=== PATIENT | female | born 1950 | race Caucasian/White ===

== ENCOUNTER 2017-11-15 06:40 | Day surgery (SDC) | payer MEDICARE, BC ==
[2017-11-13 13:06] VITALS: BMI 37.0
[~2017-11-15 06:40] MED LIST: LACTATED RINGERS 1,000 ML IV SCH; LIDOCAINE 1% 20 ML VIAL (10MG/ML) FOR IV START INTRADERMA PRN
[2017-11-15 07:08] LABS: Glucose,Whole Blood 100 mg/dL (75-99)
[2017-11-15 07:11] VITALS: TEMP 98.4
[2017-11-15] MEDS ORDERED: PROPOFOL 10 MG/ML 20 ML VIAL IV ONE (07:34)
--- NOTE | 2017-11-15 08:04 | P.PCN ---
Date of Procedure: 11/15/17 Procedure(s) Performed: BRIEF HISTORY: Patient is a 67-year-old, pleasant, female, recently diagnosed with liver cirrhosis. She also has long-standing history of GERD. She is scheduled for an upper endoscopy to evaluate for esophageal varices and rule out compensated reflux disease. PROCEDURE PERFORMED: Esophagogastroduodenoscopy and biopsy. PREOPERATIVE DIAGNOSIS: Liver cirrhosis/screening for esophageal varices/. IV sedation per anesthesia. PROCEDURE: After informed consent was obtained, the patient was brought into the endoscopy unit. IV sedation was administered by Anesthesia under continuous monitoring. Initially the Olympus GIF-140 video endoscope was inserted into the mouth. Esophagus intubated without any difficulty. It was gradually advanced into the stomach and duodenum and carefully examined. The bulb and the second part of the duodenum appeared normal. The scope at this time was withdrawn to the stomach, adequately insufflated with air, and upon careful examination, mucosa of the antrum, appeared normal. In the body of the stomach there was a 5 -6 minute polyp that was biopsied. The rest of the body, cardia and the fundus appeared normal. There was small amount of retained food in the stomach suggestive of gastroparesis. The scope was then withdrawn into the esophagus. The GE junction was located at 39 cm from the incisors. The esophagus appeared normal. There were no erosions or ulcerations seen. Small esophageal varices seen in the distal esophagus and the patient tolerated the procedure well. IMPRESSION: 1. 5 mm gastric polyp status post biopsy. 2. Retained food in the stomach suggestive of gastroparesis. 3. Small distal esophageal varices RECOMMENDATIONS: The findings of this examination were discussed with the patient as well as her family. She was advised to follow with the biopsy results. She can have a repeat upper endoscopy in 2-3 years.
[2017-11-15 08:49] VITALS: BP 107/60; PULSE 61; RESP 18
== END 2017-11-15 09:14 | disposition home or self-care (01) ==
LOC: ORWHC2ENDO 06:40
PROVIDERS: ATTEND Internal Medicine Gastroenterology
DX: K31.7 Polyp of stomach and duodenum (principal); K25.9 Gastric ulcer, unspecified as acute or chronic, without hemorrhage or perforation; K29.50 Unspecified chronic gastritis without bleeding; K74.69 Other cirrhosis of liver; I85.10 Secondary esophageal varices without bleeding; K21.9 Gastro-esophageal reflux disease without esophagitis; I10 Essential (primary) hypertension; E11.9 Type 2 diabetes mellitus without complications; Z79.84 Long term (current) use of oral hypoglycemic drugs; E78.5 Hyperlipidemia, unspecified; E07.9 Disorder of thyroid, unspecified; M10.9 Gout, unspecified; Z79.899 Other long term (current) drug therapy; Z88.6 Allergy status to analgesic agent; Z88.2 Allergy status to sulfonamides
CPT/HCPCS: 88305; 88342; 43239; J2704

== ENCOUNTER 2018-12-19 08:25 | Day surgery (SDC) | payer MEDICARE, BC ==
[2018-12-16 13:01] VITALS: BMI 39.4
[2018-12-19] MEDS ORDERED: LACTATED RINGERS 1,000 ML IV ONE (09:20)
[2018-12-19] MEDS ORDERED: LIDOCAINE 1% 20 ML VIAL (10MG/ML) FOR IV START INTRADERMA ONE (09:20)
[2018-12-19 09:27] VITALS: RESP 16; TEMP 97.8
[2018-12-19 09:32] LABS: Glucose,Whole Blood 92 mg/dL (75-99)
[2018-12-19] MEDS ORDERED: PROPOFOL 10 MG/ML 20 ML VIAL IV ONE (10:10)
--- NOTE | 2018-12-19 10:28 | P.PCN ---
Date of Procedure: 12/19/18 Procedure(s) Performed: BRIEF HISTORY: Patient is a 68-year-old pleasant white female scheduled for an elective colonoscopy as a part of evaluation of prior history of colon polyps. Last colonoscopy was 3 years ago. PROCEDURE PERFORMED: Colonoscopy with snare polypectomy. PREOPERATIVE DIAGNOSIS: History of colon polyps. IV sedation per Anesthesia. PROCEDURE: After informed consent was obtained, the patient, was brought into the endoscopy unit. IV sedation was administered by Anesthesia under continuous monitoring. Digital rectal examination was normal. Initially the Olympus CF-160 flexible video colonoscope was then inserted in the rectum, gradually advanced into the cecum without any difficulty. Careful examination was performed as the scope was gradually being withdrawn. Ileocecal valve and the appendiceal orifice were visualized and appeared normal. Prep was excellent. Mucosa of the cecum, ascending colon, transverse colon, descending colon appeared normal. In the distal sigmoid colon there was a 5 mm polyp that was removed by snare polypectomy. The rest of the, sigmoid colon, and rectum appeared normal. Retroflexion was performed in the rectum and small internal hemorrhoids were seen. The patient tolerated the procedure well. IMPRESSION: 5 mm distal sigmoid colon polyp status post polypectomy Rest of the colon appeared normal. Small internal hemorrhoids. RECOMMENDATIONS: Findings of this examination were discussed with the patient as well as her family. She was advised to follow with the biopsy results and have a repeat surveillance colonoscopy in 5 years
[2018-12-19 10:37] VITALS: BP 115/56; PULSE 59
== END 2018-12-19 11:01 | disposition home or self-care (01) ==
LOC: ORWHC2ENDO 08:25
PROVIDERS: ATTEND Internal Medicine Gastroenterology
DX: Z12.11 Encounter for screening for malignant neoplasm of colon (principal); Z86.010 Personal history of colon polyps; K64.8 Other hemorrhoids; D12.5 Benign neoplasm of sigmoid colon; I10 Essential (primary) hypertension; E78.5 Hyperlipidemia, unspecified; Z86.718 Personal history of other venous thrombosis and embolism; Z86.711 Personal history of pulmonary embolism; E11.9 Type 2 diabetes mellitus without complications; E07.9 Disorder of thyroid, unspecified; B19.20 Unspecified viral hepatitis C without hepatic coma; K21.9 Gastro-esophageal reflux disease without esophagitis; K74.60 Unspecified cirrhosis of liver; Z79.84 Long term (current) use of oral hypoglycemic drugs; Z79.890 Hormone replacement therapy; Z79.899 Other long term (current) drug therapy; Z88.6 Allergy status to analgesic agent; Z88.2 Allergy status to sulfonamides
CPT/HCPCS: 45385; 88305; J2704

== ENCOUNTER → 2020-03-09 | Day surgery (SDC) | payer BC, MEDICARE ==
[2020-03-07 13:40] VITALS: BMI 39.4
[~2020-03-09] MED LIST changes: -LIDOCAINE 1% 20 ML VIAL (10MG/ML) FOR IV START INTRADERMA PRN; +LIDOCAINE 1% INJ 10MG/ML (20 ML MDV) ONE; +PROPOFOL 10 MG/ML 20 ML VIAL IV ONE
[2020-03-09 07:40] VITALS: TEMP 97.3
[2020-03-09 07:46] LABS: Glucose,Whole Blood 102 mg/dL (75-99)
--- NOTE | 2020-03-09 08:48 | P.PCN ---
Date of Procedure: 03/09/20 Procedure(s) Performed: BRIEF HISTORY: Patient is a 69-year-old, pleasant, white female, scheduled for an upper endoscopy as a part of screening for esophageal varices. She was diagnosed with cirrhosis of the liver related to fatty liver disease in 2017.. PROCEDURE PERFORMED: Esophagogastroduodenoscopy with biopsy. PREOPERATIVE DIAGNOSIS: Cirrhosis of the liver/screening for esophageal varices. IV sedation per anesthesia. PROCEDURE: After informed consent was obtained, the patient was brought into the endoscopy unit. IV sedation was administered by Anesthesia under continuous monitoring. Initially the Olympus GIF-140 video endoscope was inserted into the mouth. Esophagus intubated without any difficulty. It was gradually advanced into the stomach and duodenum and carefully examined. The bulb and the second part of the duodenum appeared normal. The scope at this time was withdrawn to the stomach, adequately insufflated with air, and upon careful examination, mucosa of the antrum had patchy areas of consultation will decide if the biopsies were done from this area. The gastric polyps noted in the body the stomach which were biopsied. Rest of the body, cardia and the fundus appeared normal. No evidence of gastric varices. The scope was then withdrawn into the esophagus. The GE junction was located at 39 cm from the incisors. The esophagus appeared normal. There were no erosions or ulcerations seen, no evidence of esophageal varices and the patient tolerated the procedure well. IMPRESSION: 1. No evidence of gastric or esophageal varices. 2. Mild portal hypertensive gastropathy. 3. Small gastric polyps RECOMMENDATIONS: The findings of this examination were discussed with the patient as well as her family.. She was advised to follow with the biopsy results. She can have a repeat EGD in 2 -3 years for screening for esophageal varices.
[2020-03-09 08:57] VITALS: RESP 16
[2020-03-09 09:14] VITALS: BP 133/75; PULSE 57
== END ==
LOC: ORWHC2ENDO 07:22
PROVIDERS: ATTEND Internal Medicine Gastroenterology
DX: Z13.89 Encounter for screening for other disorder (principal); K29.50 Unspecified chronic gastritis without bleeding; K31.7 Polyp of stomach and duodenum; K76.6 Portal hypertension; K31.89 Other diseases of stomach and duodenum; K74.60 Unspecified cirrhosis of liver; K76.0 Fatty (change of) liver, not elsewhere classified; I10 Essential (primary) hypertension; E78.5 Hyperlipidemia, unspecified; E11.9 Type 2 diabetes mellitus without complications; E07.9 Disorder of thyroid, unspecified; M10.9 Gout, unspecified; M19.90 Unspecified osteoarthritis, unspecified site; K21.9 Gastro-esophageal reflux disease without esophagitis; F41.9 Anxiety disorder, unspecified; Z88.6 Allergy status to analgesic agent; Z88.2 Allergy status to sulfonamides; Z87.891 Personal history of nicotine dependence; Z79.84 Long term (current) use of oral hypoglycemic drugs; Z79.899 Other long term (current) drug therapy; Z98.890 Other specified postprocedural states; E66.01 Morbid (severe) obesity due to excess calories; Z68.39 Body mass index [BMI] 39.0-39.9, adult; Z90.89 Acquired absence of other organs
CPT/HCPCS: 88305; 43239; J2001; J2704

== ENCOUNTER 2023-12-25 09:42 | Day surgery (SDC) | payer MEDICARE ==
[2023-12-19 11:26] VITALS: BMI 37.2
[~2023-12-25 09:42] MED LIST changes: +LIDOCAINE 1% (10MG/ML) FOR IV START INTRADERMA PRN; -LIDOCAINE 1% INJ 10MG/ML (20 ML MDV) ONE; -PROPOFOL 10 MG/ML 20 ML VIAL IV ONE
[2023-12-25] MEDS: LACTATED RINGERS 1,000 ML IV ONE (10:15)
[2023-12-25 10:37] LABS: Glucose,Whole Blood 91 mg/dL (70-110)
[2023-12-25] MEDS ORDERED: PROPOFOL 10 MG/ML 20 ML VIAL IV ONE (10:48)
[2023-12-25 10:52] VITALS: TEMP 97.4
--- NOTE | 2023-12-25 11:02 | P.PCN ---
Date of Procedure: 12/25/23 Procedure(s) Performed: BRIEF HISTORY: Patient is a 73-year-old pleasant white female scheduled for an elective colonoscopy as a part of evaluation by history of colon polyps. PROCEDURE PERFORMED: Colonoscopy. PREOPERATIVE DIAGNOSIS: History of colon polyps. IV sedation per Anesthesia. PROCEDURE: After informed consent was obtained, the patient, was brought into the endoscopy unit. IV sedation was administered by Anesthesia under continuous monitoring. Digital rectal examination was normal. Initially the Olympus CF-160 flexible video colonoscope was then inserted in the rectum, gradually advanced into the cecum without any difficulty. Careful examination was performed as the scope was gradually being withdrawn. Ileocecal valve and the appendiceal orifice were visualized and appeared normal. Prep was excellent. Mucosa of the cecum, ascending colon, transverse colon, descending colon, sigmoid colon, and rectum appeared normal. Retroflexion was performed in the rectum and internal hemorrhoids were seen. The patient tolerated the procedure well. IMPRESSION: Normal-appearing colon from rectum to cecum with no evidence of colorectal neoplasia. Grade 2 internal hemorrhoids RECOMMENDATIONS: Findings of this examination were discussed with the patient as well as her family.. She was advised to have repeat screening colonoscopy in 5 years because of the prior history of colon polyps.
[2023-12-25 11:52] VITALS: BP 112/72; PULSE 68; RESP 18
== END 2023-12-25 11:48 | disposition home or self-care (01) ==
LOC: ORWHC2ENDO 09:42
PROVIDERS: ATTEND Internal Medicine Gastroenterology
DX: Z86.010 Personal history of colon polyps (principal); Z12.11 Encounter for screening for malignant neoplasm of colon; K64.1 Second degree hemorrhoids; I48.91 Unspecified atrial fibrillation; E78.5 Hyperlipidemia, unspecified; E11.9 Type 2 diabetes mellitus without complications; Z86.73 Personal history of transient ischemic attack (TIA), and cerebral infarction without residual deficits; I26.99 Other pulmonary embolism without acute cor pulmonale; E07.9 Disorder of thyroid, unspecified; K21.9 Gastro-esophageal reflux disease without esophagitis; Z79.01 Long term (current) use of anticoagulants; Z79.890 Hormone replacement therapy; Z79.899 Other long term (current) drug therapy; Z88.6 Allergy status to analgesic agent
CPT/HCPCS: 45378; J2704

== ENCOUNTER 2024-05-01 12:02 | Day surgery (SDC) | payer MEDICARE ==
[2024-04-28 10:47] VITALS: BMI 33.6
[2024-05-01] MEDS: IV FLUID CONTINUATION 1,000 ML IV ONE (12:29)
[2024-05-01 12:42] VITALS: TEMP 98
[2024-05-01] MEDS: LACTATED RINGERS 1,000 ML IV SCH (12:48)
[2024-05-01 12:49] LABS: Glucose,Whole Blood 91 mg/dL (70-110)
[2024-05-01] MEDS ORDERED: PROPOFOL 10 MG/ML 20 ML VIAL IV ONE (14:00)
--- NOTE | 2024-05-01 14:13 | P.PCN ---
Date of Procedure: 05/01/24 Procedure(s) Performed: BRIEF HISTORY: Patient is a 73-year-old, pleasant, white female scheduled for an upper endoscopy as a part of screening for esophageal varices. Patient was diagnosed with liver cirrhosis related to fatty liver disease in 2017.. PROCEDURE PERFORMED: Esophagogastroduodenoscopy with biopsy. PREOPERATIVE DIAGNOSIS: History of liver cirrhosis/screening for esophageal varices. IV sedation per anesthesia. PROCEDURE: After informed consent was obtained, the patient was brought into the endoscopy unit. IV sedation was administered by Anesthesia under continuous monitoring. Initially the Olympus GIF-140 video endoscope was inserted into the mouth. Esophagus intubated without any difficulty. It was gradually advanced into the stomach and duodenum and carefully examined. The bulb and the second part of the duodenum appeared normal. The scope at this time was withdrawn to the stomach, adequately insufflated with air, and upon careful examination, mucosa of the antrum and centimeter polyp advised biopsy. There was large amount of retained solid food noted in the proximal body of the stomach. In the cardia of the stomach there was a 1 cm polyp that was biopsied. There was congested appearing mucosa in the fundus of the stomach consistent with mild portal hypertensive gastropathy. There were no gastric varices identified. The scope was then withdrawn into the esophagus. The GE junction was located at 39 cm from the incisors. The esophagus appeared normal. There were no erosions or ulcerations seen, no evidence of esophageal varices and the patient tolerated the procedure well. IMPRESSION: 1. No esophageal or gastric varices identified. 2. 1 cm polyp in the antrum. In the cardia of the stomach s/p multiple biopsies 3 Evidence of portal hypertensive gastropathy. 4. Retained food in the stomach suggestive of diabetic gastroparesis. RECOMMENDATIONS: The findings of this examination were discussed with the patient as well as her family. She was advised to follow-up with the biopsy results. Recommended repeat upper endoscopy in 2 to 3 years to screen for esophageal varices..
[2024-05-01 14:32] VITALS: BP 112/72; PULSE 73; RESP 16
== END 2024-05-01 14:53 | disposition home or self-care (01) ==
LOC: ORWHC2ENDO 12:02
PROVIDERS: ATTEND Internal Medicine Gastroenterology
DX: K74.60 Unspecified cirrhosis of liver
CPT/HCPCS: 43239